=== PATIENT | male | born 1950 | race Caucasian/White ===

== ENCOUNTER 2016-09-16 07:20 | Day surgery (SDC) | payer OTHER ==
[~2016-09-16] VITALS: Ht 177.8 cm; Wt 81.0 kg
[~2016-09-16 07:20] MED LIST: GLUC-104 PO; MULT-1018 PO
[2016-09-16 07:52] VITALS: BP 132/71; PULSE 67; RESP 16; O2SAT 98
[2016-09-16] MEDS ORDERED: 0.9% Sodium Chloride 1,000 ML IV PRN (07:52)
[2016-09-16] MEDS ORDERED: fentaNYL-PF 50 mCg/mL 2 mL Inj IVPUSH PRN (07:55)
[2016-09-16] MEDS ORDERED: Sodium Chloride LOK Flush 10 mL Syringe IV PRN (07:55)
--- NOTE | 2016-09-16 09:23 | PCM.ENDCOL ---
Colonoscopy Date of Service: Sep 16, 2016 Physician Saeed Mccabe MD Indication for Procedure Screening for colon cancer Post Procedure Dx & Findings: Polyps and hemorrhoids Procedure Colonoscopy Cecum 4 minutes Withdrawal 14 minutes Prep adequate PROCEDURE IN DETAIL: After unremarkable rectal examination Olympus video colonoscope was inserted into patient's anal canal and advanced to the cecum. Landmarks identified including the ileocecal valve and appendiceal orifice. Scope was withdrawn systematically. The mucosa of the cecum, ascending, transverse, descending, sigmoid, rectal mucosa lined with whitish, pink, smooth, glistening, normal-appearing mucosa, normal fine branching, underlying vascularity, normal haustra. The patient tolerated procedure and was transported to observation area. In the ascending colon there was 2 mm polyp which was resected completely using cold snare. In the sigmoid colon there were 2 less than 1 mm polyps which were both resected completely using cold forceps. In the rectum retroflexion was done which showed hemorrhoids and a canal was inspected carefully on the way out and mild hemorrhoids noted. Impression Polyps 3 status post removal Recommendation A colonoscopy 3 years Presedation Assessment Risks and Benefits Informed consent was obtained from the patient after all risks and benefits including but not limited to drug reaction, infection, pain, bleeding, perforation, as well as alternatives were discussed. Patient monitoring Continuous pulse oximetry, cardiac monitoring, blood pressure monitoring, IV access, and oxygen at 2L per nasal cannula. Periprocedural Fentanyl: Fentanyl 50mcg Incrementally Midazolam: Midazolam 2mg Incrementally Complications There were no periprocedural complications identified. Post Procedure Plan Post Procedure Recommendations 1. Restrict activities today. 2. Resume normal activities in the morning. 3. Resume medications. 4. Patient informed of normal post procedure side effects as bloating, drowsiness, blood streaking in the stool. 5. average risk CRCS. If colon polyps come back as: -Hyperplastic- can repeat colonoscopy in 10 years -Tubular adenoma- repeat colonoscopy in 5 years -Tubulovillous/villous adenoma- repeat colonoscopy in 3 years -If any dysplasia- return to clinic as soon as possible 6. Please don't hesitate to call me with any questions. Saeed Mccabe MD Sep 16, 2016 09:23
[2016-09-16 09:25] VITALS: BP 133/69; PULSE 53; RESP 14; O2SAT 96
[2016-09-16 09:30] VITALS: BP 127/69; PULSE 53; RESP 14; O2SAT 96
[2016-09-16 09:40] VITALS: BP 116/66; PULSE 54; RESP 14; O2SAT 96
--- NOTE | 2016-09-17 11:59 | PATH ---
SURGICAL PATHOLOGY Attending Physician:Saeed Mccabe M.D. CASE STATUS: Signed Out PATIENT NAME: VANESSA CARLIN PID: [id number] : 1950 DATE COLLECTED:09/16/2016 17:27 SPECIMEN: 1: Colon, Biopsy 2: Colon, Biopsy CLINICAL HISTORY: A: ASCENDING COLON POLYP B: SIGMOID COLON POLYP X2 FINAL DIAGNOSIS: 1.ASCENDING COLON POLYP: SESSILE SERRATED ADENOMA. 2.SIGMOID COLON POLYPS: HYPERPLASTIC POLYPS, 2. ICD10 CODE D12.2 K63.5 GROSS DESCRIPTION: The specimen is received in two formalin filled containers labeled with the patient's name. 1). The specimen is sublabeled "ascending colon polyp" and consists of 3 portions of tissue which aggregate to 0.4 x 0.4 x 0.3 CM. The specimen is entirely submitted in cassette 1A. 2). The specimen is sublabeled "sigmoid colon polyp" and consists of 2 portions of tissue which aggregate to 0.4 x 0.4 x 0.3 CM. The specimen is entirely submitted in cassette 2A. 09/16/2016 [facility] MICRO DESCRIPTION: See diagnosis. ICD-9 CODES: CPT CODES: 1: 61005 2: 97490 Electronically Signed Out Ebony Lazar MD [facility] Pathology [facility] [address], [place] [address] Technical component performed at [facility], [facility] [address], [place], [address]
== END 2016-09-16 23:59 | disposition home or self-care (01) ==
LOC: END 07:20
PROVIDERS: ATTEND Internal Medicine
DX: Z12.11 Encounter for screening for malignant neoplasm of colon (principal); D12.2 Benign neoplasm of ascending colon; K63.5 Polyp of colon; K64.8 Other hemorrhoids; G47.33 Obstructive sleep apnea (adult) (pediatric); G25.81 Restless legs syndrome; J30.9 Allergic rhinitis, unspecified; I83.90 Asymptomatic varicose veins of unspecified lower extremity; Z68.25 Body mass index [BMI] 25.0-25.9, adult
CPT/HCPCS: 45380; 45385; J2250; J7030